=== PATIENT | male | born 1950 | race Caucasian/White ===

== ENCOUNTER → 2016-11-16 | Outpatient (CLI) | payer MEDICARE ==
[~2016-11-16] MED LIST: AMLO10 PO; ASPI-110 PO; ATOR20TA15 PO; LISI10TA3 PO; METF500T PO
--- NOTE | 2016-12-13 08:14 | RSPPFT ---
DATE OF PROCEDURE: 11/16/16 COMMENTS: Spirometry with FVC of 3.2 predicted 4.2, FEV1 of 1.5 predicted 2.9, FEV1/FVC ratio 48% predicted 70%. Post-bronchodilator FEV1 increases 1.7. Air trapping is present with RV at 3.5 predicted 2.3. DLCO is 68% of predicted. IMPRESSION: On the basis of the above, patient has an obstructive lung defect with response to acutely inhaled bronchodilator, significant air trapping and decreased DLCO.
== END ==
LOC: PHRSP 08:42
PROVIDERS: ATTEND Internal Medicine
DX: J44.9 Chronic obstructive pulmonary disease, unspecified (principal)
CPT/HCPCS: 94060; 94726; 94729